=== PATIENT | male | born 1970 | race Two or more races ===

== ENCOUNTER → 2024-06-18 | Outpatient (BNVA) | payer MEDICAID, SELFPAY | END | disposition home or self-care (01) | PROVIDERS: PCP Physician Assistant; Referring Provider Physician Assistant; Visit Provider Urology | DX: N40.1 Benign prostatic hyperplasia with lower urinary tract symptoms (principal); N13.8 Other obstructive and reflux uropathy; R97.20 Elevated prostate specific antigen [PSA]; N52.9 Male erectile dysfunction, unspecified; Z80.42 Family history of malignant neoplasm of prostate; N40.2 Nodular prostate without lower urinary tract symptoms | CPT/HCPCS: 81003; 99212; G0463 ==

== ENCOUNTER → 2024-07-26 | Outpatient (BNVA) | payer MEDICAID, SELFPAY | END | disposition home or self-care (01) | PROVIDERS: PCP Physician Assistant; Referring Provider Physician Assistant; Visit Provider Urology | DX: N42.89 Other specified disorders of prostate (principal); N40.1 Benign prostatic hyperplasia with lower urinary tract symptoms; N13.8 Other obstructive and reflux uropathy; Z80.42 Family history of malignant neoplasm of prostate | CPT/HCPCS: 55700; 76942; 81003; 96372; A4649; J1580; J3490; A9270 ==

== ENCOUNTER → 2025-02-03 | Outpatient (BNVA) | payer MEDICAID, SELFPAY | END | disposition home or self-care (01) | PROVIDERS: PCP Physician Assistant; Referring Provider Physician Assistant; Visit Provider Urology | DX: N40.0 Benign prostatic hyperplasia without lower urinary tract symptoms (principal); R97.20 Elevated prostate specific antigen [PSA]; Z80.42 Family history of malignant neoplasm of prostate; F17.210 Nicotine dependence, cigarettes, uncomplicated | CPT/HCPCS: 81003; 99213; G0463 ==